=== PATIENT | male | born 1940 | race Caucasian/White ===

== ENCOUNTER 2018-10-08 20:14 | Emergency (ER) | payer MEDICARE, OTHER ==
[~2018-10-08] VITALS: Ht 172.7 cm; Wt 82.6 kg
--- NOTE | 2018-10-08 20:31 | NUR ---
CALL PMD W/RESULTS. ([phone] DR ASHLEE COLBY
[2018-10-08 20:53] LABS: BASOPHILS % (AUTO) 0.6 % (0.0-2.0); EOSINOPHILS % (AUTO) 0.3 % (0.0-6.0); HEMATOCRIT 53 % (39-51); HEMOGLOBIN 17.8 g/dL (13.5-17.5); LYMPHOCYTES % (AUTO) 12.7 % (20.0-44.0); MEAN CORPUSCULAR HGB CONC 34 g/dl (31.0-36.0); MEAN CORPUSCULAR VOLUME 117 fL (80-96); MONOCYTES # (AUTO) 0.5 /CMM (0.1-1.30); MONOCYTES % (AUTO) 6.6 % (2.0-12.0); NEUTROPHILS # (AUTO) 6.3 /CMM (1.8-8.9); NEUTROPHILS % (AUTO) 79.8 % (43.0-81.0); PLATELET COUNT (AUTO) 193 /CMM (150-450); RED BLOOD CELL COUNT(AUTO) 4.54 MIL/uL (4.5-6.0); WHITE BLOOD COUNT (AUTO) 7.9 K/uL (4.3-11.0)
[2018-10-08] MEDS ORDERED: ONDANSETRON HCL/PF 4 MG/2 ML VIAL ONE (20:58)
[2018-10-08] MEDS ORDERED: IV NS 0.9% 1,000 ML BAG IV ONE (21:00)
[2018-10-08] MEDS ORDERED: ONDANSETRON HCL/PF 4 MG/2 ML VIAL IVP ONE (21:00)
[2018-10-08 21:01] LABS: CALCIUM, SERUM 9.2 mg/dL (8.5-10.1); CARBON DIOXIDE 24 mmol/L (21-32); CHLORIDE 106 mmol/L (98-107); GLUCOSE 140 mg/dL (74-106); SODIUM SERUM 142 mmol/L (136-145); UREA NITROGEN, BLOOD 43 mg/dL (7-18)
[2018-10-08 21:06] LABS: ALANINE AMINOTRANSFERASE 43 U/L (12-78); ALBUMIN 3.9 g/dL (3.4-5.0); ALKALINE PHOSPHATASE 68 U/L (46-116); ASPARTATE AMINOTRANSFERASE 26 U/L (15-37); BILIRUBIN,DIRECT 0.1 mg/dL (0.0-0.2); BILIRUBIN,TOTAL 0.5 mg/dL (0.2-1.0); TOTAL PROTEIN, SERUM 7.7 g/dL (6.4-8.2)
--- NOTE | 2018-10-08 21:37 | NUR ---
BIBS. C/O "REFERRED BY PMD FOR DRY HEAVING SINCE NOON" -DIZZY AOX4. AMBULATORY. -N/+V. NO ACUTE DISTRESS NOTED. SKIN INTACT. FAMILY AT BEDSIDE. MADE COMFORTABLE AND READY FOR EVAL.
--- NOTE | 2018-10-08 22:14 | NUR ---
IV removed. Catheter intact and site benign. Pressure and 4x4 applied to site. No bleeding noted. Patient discharged to home in stable condition. Written and verbal after care instructions given. Patient verbalizes understanding of instruction.
[2018-10-08 22:32] LABS: LYMPHOCYTES % (MANUAL) 10 % (16-48); MONOCYTES % (MANUAL) 5 % (0-11.0); NEUTROPHILS % (MANUAL) 85 (42-76)
[2018-10-08 23:08] VITALS: BP 152/89
== END 2018-10-08 22:14 | disposition home or self-care (01) ==
LOC: ER 20:21
DX: E86.0 Dehydration (principal); I12.9 Hypertensive chronic kidney disease with stage 1 through stage 4 chronic kidney disease, or unspecified chronic kidney disease; N18.9 Chronic kidney disease, unspecified; R11.2 Nausea with vomiting, unspecified
CPT/HCPCS: 36415; 80048; 80076; 84484; 85025; 93005; 96361; 96374; 99284; J2405; J7030

== ENCOUNTER 2018-11-15 06:46 | Emergency (ER) | payer MEDICARE, OTHER ==
[~2018-11-15] VITALS: Ht 170.2 cm; Wt 72.6 kg
--- NOTE | 2018-11-15 06:56 | NUR ---
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 PT AAOX4 NO ACUTE DISTRESS NOTED, RESP EVEN AND UNLABORED. PUPILS PERRLA, PT ABLE TO MOVE ALL EXTREMITIES WELL WITH BILATERAL EQUAL AIR BRUSH ARTIST. PLACE PT ON CARDIAC MONITORING, CONTINUOUS POX. PENDING ER MD MARTINEZ.
--- NOTE | 2018-11-15 06:56 | NUR ---
Note undone in EDM - 11/15/18 at 0704 by MICHAEL TO BED 2 AMBULATORY C/O SCALP LAC S/P TRIP AND FALL X2HR RIVETER PNEUMATIC, DENIES KO, NO BLEEDING NOTED. PT AAOX4 NO ACUTE DISTRESS NOTED, RESP EVEN AND UNLABORED. PUPILS PERRLA, PT ABLE TO MOVE ALL EXTREMITIES WELL WITH BILATERAL EQUAL CUT IN STATION OPERATOR. PLACE PT ON CARDIAC MONITORING, CONTINUOUS POX. PENDING ER MD MARTINEZ.
--- NOTE | 2018-11-15 07:15 | NUR ---
ASSUME PT CARE. RESTING IN BED. SEEN BY ED PROVIDER.
[2018-11-15] MEDS ORDERED: LIDOCAINE 1%-EPI 1:100,000 20 ML VIAL ONE (07:54)
[2018-11-15] MEDS ORDERED: LIDOCAINE 1% INJ 50 ML MDV IJ ONE (08:00)
--- NOTE | 2018-11-15 08:14 | NUR ---
DR LUNA BACK AT BEDSIDE FOR LAC REPAIR.
[2018-11-15] MEDS ORDERED: TDAP [DIPH/PERTUSSIS/TET] 0.5 ML VIAL IM ONE ×2 (08:16→09:00)
--- NOTE | 2018-11-15 08:20 | NUR ---
TDAP GIVEN LOT [id number]/ EXP 04/03/20 IM R DELTOID
--- NOTE | 2018-11-15 08:44 | NUR ---
Patient discharged to home in stable condition. Written and verbal after care instructions given. Patient verbalizes understanding of instruction.
[2018-11-15 08:45] VITALS: BP 115/74
== END 2018-11-15 08:46 | disposition home or self-care (01) ==
LOC: ER 06:51
DX: S01.81XA Laceration without foreign body of other part of head, initial encounter (principal); R51 Headache; I10 Essential (primary) hypertension; Q43.0 Meckel's diverticulum (displaced) (hypertrophic); W01.198A Fall on same level from slipping, tripping and stumbling with subsequent striking against other object, initial encounter; Y93.89 Activity, other specified; Y92.89 Other specified places as the place of occurrence of the external cause; Y99.8 Other external cause status
CPT/HCPCS: 12013; 70450; 72125; 90471; 90715; 99284; A6402; A6403; J3490

== ENCOUNTER 2018-11-22 12:08 | Emergency (ER) | payer MEDICARE, OTHER ==
[~2018-11-22] VITALS: Ht 170.2 cm; Wt 72.6 kg
[2018-11-22 12:16] VITALS: BP 124/85
--- NOTE | 2018-11-22 12:54 | NUR ---
For discharge-Patient discharged to home in stable condition. Written and verbal after care instructions given. Patient verbalizes understanding of instruction. Home ambulatory Stable
== END 2018-11-22 12:53 | disposition home or self-care (01) ==
LOC: ER 12:10
DX: S01.81XD Laceration without foreign body of other part of head, subsequent encounter (principal); I10 Essential (primary) hypertension; X58.XXXD Exposure to other specified factors, subsequent encounter

== ENCOUNTER 2022-03-14 15:19 | Emergency (ER) | payer MEDICARE, OTHER ==
[~2022-03-14] VITALS: Ht 167.6 cm; Wt 77.1 kg
--- NOTE | 2022-03-14 16:44 | NUR ---
pt to radiology for ct head, cervical and facial ct scan via [facility].
[2022-03-14] MEDS ORDERED: LIDOCAINE HCL/PF 1% 30 ML VIAL TP ONE (19:00)
[2022-03-14] MEDS ORDERED: CEPH500T PO (19:16)
[2022-03-14] MEDS ORDERED: BACI/NEOM/POLY B OINT PKT 1 UDPKT PACKET ONE (19:25)
[2022-03-14] MEDS ORDERED: BACI/NEOM/POLY B OINT PKT 1 UDPKT PACKET TP ONE (19:30)
--- NOTE | 2022-03-14 19:37 | NUR ---
Patient discharged to home in stable condition. Written and verbal after care instructions given. Patient verbalizes understanding of instruction.
[2022-03-14 20:08] VITALS: BP 124/88
== END 2022-03-14 20:08 | disposition home or self-care (01) ==
LOC: ER 15:19
DX: S02.2XXA Fracture of nasal bones, initial encounter for closed fracture (principal); S01.81XA Laceration without foreign body of other part of head, initial encounter; I10 Essential (primary) hypertension; Z79.899 Other long term (current) drug therapy; W01.0XXA Fall on same level from slipping, tripping and stumbling without subsequent striking against object, initial encounter; Y93.89 Activity, other specified; Y92.89 Other specified places as the place of occurrence of the external cause; Y99.8 Other external cause status
CPT/HCPCS: 99284; 72125; 12013; 70450; 70486; J3490

== ENCOUNTER 2022-03-20 11:04 | Emergency (ER) | payer MEDICARE, OTHER ==
[~2022-03-20] VITALS: Ht 170.2 cm; Wt 77.1 kg
[2022-03-20 11:04] VITALS: BP 133/98
[~2022-03-20 11:04] MED LIST: CEPH500T PO
--- NOTE | 2022-03-20 11:19 | NUR ---
DR HOWELL AT BEDSIDE FOR EVAL
--- NOTE | 2022-03-20 11:21 | NUR ---
Patient discharged to home in stable condition. Written and verbal after care instructions given. Patient verbalizes understanding of instruction.
== END 2022-03-20 11:22 | disposition home or self-care (01) ==
LOC: ER 11:06
DX: Z48.02 Encounter for removal of sutures (principal); S01.81XD Laceration without foreign body of other part of head, subsequent encounter; I10 Essential (primary) hypertension; Z79.899 Other long term (current) drug therapy; X58.XXXD Exposure to other specified factors, subsequent encounter